=== PATIENT | male | born 1970 | race Caucasian/White ===

== ENCOUNTER 2017-11-04 01:52 | Emergency (ER) | payer BC ==
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
[2017-11-04] MEDS ORDERED: Diphtheria,Pertussis(Acell),Tetanus Vaccine 0.5 ML Syringe IM ONE (02:18)
== END 2017-11-04 04:35 | disposition home or self-care (01) ==
LOC: MW.ED 01:52
DX: S01.511A Laceration without foreign body of lip, initial encounter (principal); Z23 Encounter for immunization; Y04.0XXA Assault by unarmed brawl or fight, initial encounter
CPT/HCPCS: 90471; 90715; 99283-25

== ENCOUNTER 2017-11-11 18:43 | Emergency (ER) | payer BC | END 2017-11-11 19:11 | disposition home or self-care (01) | LOC: MW.ED 18:43 | DX: Z53.21 Procedure and treatment not carried out due to patient leaving prior to being seen by health care provider (principal) ==

== ENCOUNTER 2017-11-14 18:18 | Emergency (ER) | payer BC | END 2017-11-14 19:43 | disposition home or self-care (01) | LOC: MW.ED 18:18 | DX: Z53.21 Procedure and treatment not carried out due to patient leaving prior to being seen by health care provider (principal) ==